=== PATIENT | female | born 1950 | race Caucasian/White ===

== ENCOUNTER 2018-07-13 04:57 | Inpatient (IN) ==
[2018-07-13] MEDS ORDERED: PEPCID ONE (10:13)
[2018-07-13] MEDS ORDERED: COLACE ONE (10:13)
[2018-07-13] MEDS ORDERED: LYRICA ONE (10:14)
[2018-07-13] MEDS ORDERED: REGLAN ONE (10:14)
[2018-07-13] MEDS ORDERED: LR 1,000 ML ONE (10:14)
[2018-07-13] MEDS ORDERED: KEFZOL 2 GM/D5W 2 GM/50 ML IVPB ONE (10:14)
[2018-07-13] MEDS ORDERED: DECADRON ONE (10:31)
[2018-07-13] MEDS ORDERED: FENTANYL ONE (10:31)
[2018-07-13] MEDS ORDERED: DIPRIVAN 1% ONE ×2 (10:31→13:48)
[2018-07-13] MEDS ORDERED: XYLOCAINE-MPF 2% ONE (10:31)
[2018-07-13] MEDS ORDERED: ZOFRAN ONE (10:31)
[2018-07-13] MEDS ORDERED: OFIRMEV 1000 MG/ISOTONIC SOLN 1,000 MG/100 ML BOTTLE ONE (10:31)
[2018-07-13] MEDS ORDERED: TORADOL ONE (12:53)
[2018-07-13] MEDS ORDERED: DURAMORPH ONE (12:53)
[2018-07-13] MEDS ORDERED: SENSORCAINE-MPF 0.5%/EPI 1:200,000 ONE (12:54)
[2018-07-13] MEDS ORDERED: NEOSPORIN G.U. IRRIGANT ONE (12:54)
[2018-07-13] MEDS ORDERED: VANCOMYCIN ONE (12:54)
[2018-07-13] MEDS ORDERED: CYKLOKAPRON 1,000 MG/NS 2,000 MG/200 ML IVPB ONE (12:54)
[2018-07-13] MEDS ORDERED: SODIUM CHLORIDE 0.9% ONE (12:54)
[2018-07-13] MEDS ORDERED: EXPAREL 1.3% ONE (13:13)
[2018-07-13 14:27] LABS: URINE SOURCE CATH
[2018-07-13 14:39] LABS: BILIRUBIN URINE NEGATIVE (NEGATIVE); BLOOD URINE NEGATIVE (NEGATIVE); COLOR STRAW; GLUCOSE URINE NEGATIVE (NEGATIVE); KETONE URINE NEGATIVE (NEGATIVE); TURBIDITY URINE CLEAR (CLEAR)
[2018-07-13 14:40] LABS: LEUKOCYTES URINE NEGATIVE (NEGATIVE); NITRITE URINE NEGATIVE (NEGATIVE); PROTEIN URINE NEGATIVE (NEGATIVE); UROBILINOGEN URINE NORMAL (NORMAL)
[2018-07-13 14:41] LABS: UR EPITHELIAL CELLS <10 /HPF (<10); URINE BACTERIA NEGATIVE /HPF; URINE RBC <10 /HPF (<10); URINE WBC <10 /HPF (<10)
[2018-07-13] MEDS ORDERED: NS 1,000 ML ONE (15:34)
[2018-07-13] MEDS ORDERED: ZOFRAN ODT PO PRN (15:49)
[2018-07-13] MEDS ORDERED: MORPHINE IV PRN ×2 (16:00)
[2018-07-13] MEDS ORDERED: ZOFRAN IV PRN (16:00)
[2018-07-13] MEDS ORDERED: OXY IR ONE (16:11)
--- NOTE | 2018-07-13 16:13 | Diag Imaging Result Doc PS360 ---
EXAM: KNEE 1-2 VIEWS-RIGHT 07/13/2018 HISTORY: post op total knee TECHNIQUE: Two views COMMENT: There is no evidence of fracture or erosion. There is a total knee arthroplasty. IMPRESSION: Postsurgical changes. Electronically signed by Abdoulaye Vaughan 07/13/2018 4:11 PM
[2018-07-13] MEDS ORDERED: FLEXERIL PO PRN (18:41)
[2018-07-13] MEDS ORDERED: VITAMIN D PO SCH (18:45)
--- NOTE | 2018-07-13 18:55 | PROGRESS NOTE ---
DATE: 07/13/2018 SUBJECTIVE DATA: Ms. Christianson is postop day 0 of right total knee replacement. She reports her pain is a 0/10 at this time. She reports her knee already feels better. OBJECTIVE DATA: There is good sensation right lower extremity. There is good pedal pulses. There is negative Homans sign. There is good capillary refill on toes. The bandages are clean and dry. There is about 20 mL of drainage in her drain. Vital signs are stable. ASSESSMENT: Right total knee arthroplasty. PLAN: We will plan to monitor Ms. Christianson in the hospital overnight. She is thinking about going to rehab maybe this Thursday. She is unsure if she wants go at this time. We will check back on her in the morning see how she is doing. Dictated by KRYSTAL Randolph for Luis Manuel Salas MD cc: KRYSTAL Randolph MD
[2018-07-13] MEDS: MORPHINE IV PRN ×2 (19:01→23:15)
[2018-07-13] MEDS: TYLENOL PO SCH (19:05)
[2018-07-13] MEDS: ULTRAM PO SCH ×2 (19:05→23:15)
[2018-07-13] MEDS: LYRICA PO SCH (22:13)
[2018-07-13] MEDS: PERIDEX MT SCH (22:13)
[2018-07-13] MEDS: COLACE PO SCH (22:13)
[2018-07-13] MEDS: XANAX PO SCH (22:13)
[2018-07-13] MEDS: NEURONTIN PO SCH (22:13)
[2018-07-13] MEDS: KEFZOL 2 GM/D5W 2 GM/50 ML IVPB IV SCH (22:14)
--- NOTE | 2018-07-13 22:51 | OPERATIVE NOTE ---
PROCEDURE DATE: 07/13/2018 PREOPERATIVE DIAGNOSIS: Degenerative joint disease, right knee. POSTOP DIAGNOSIS: Degenerative joint disease, right knee. PROCEDURE: Right total knee replacement. SURGEON: Mercedez Salas MD. MARKETING SUMMER INTERN: KRYSTAL Randolph. Mr. Dee was necessary for proper retraction and manipulation during the case. ANESTHESIA: Spinal. COMPLICATION: None. PROCEDURE IN DETAIL: This 67-year-old female presents for right total knee replacement. Risks, benefits, and no guarantees were discussed and the patient is willing to proceed. She was taken operating room and satisfactory anesthesia obtained. The right leg was prepped and draped in usual sterile fashion. A time-out was taken to confirm operative site, procedure, and patient. The leg was wrapped with an Esmarch and tourniquet inflated to 350 mmHg. A midline incision was made over the front of the knee followed by a quad tendon sparing arthrotomy. The patella was everted and resurfaced with freehand technique and sized to a 32 medialized dome patella. With the patella subluxed laterally the knee was flexed, an intramedullary hole made in the distal femur. The distal femoral cutting block was secured with 5 degrees of valgus and the distal femoral resection made. The femur was sized to a size 4 DePuy Attune implant. The 4-in-1 block was secured followed by the anterior, posterior and chamfer cuts. A notch was created for the posterior stabilized design using provided notch guide. Any remaining osteophytes were debrided about the femur. The knee was flexed and a PCL retractor placed behind the tibia to protect the neurovascular bundle. The tibia cutting block was secured and the tibial resection made. Flexion- extension gaps were roughly equal with a 5 mm spacer. The tibia was sized to a size 4 tibial tray. Trial reduction was performed with a 5 mm trial poly with good range of motion and stability. The lug holes were placed for the patella and femoral implant and the trial components removed. The bony surfaces were thoroughly irrigated with pulsatile lavage. Cement with a gram of vancomycin was then utilized to cement a DePuy size 4 rotating platform tibial tray, a size 4 right posterior stabilized femoral component and a 32 medialized dome patella. Excess cement was removed with a Gideon elevator. The joint capsule was injected with Exparel and a Hemovac drain placed while the cement hardened. After hardening of the cement, a size 4 posterior stabilized 5 mm thick polyethylene bearing was secured in the knee and the knee reduced. Final range of motion was 0 to 120 degrees with midline patellar tracking. The arthrotomy was copiously irrigated and closed over the drain with #1 Vicryl in the arthrotomy, 2-0 Vicryl in the subcutaneous and skin meri on the skin edges. Sterile dressings completed the closure and the patient was recovered from anesthesia and transferred to the recovery room in stable condition. No intraoperative complications were noted. Instrument count and sponge count was correct at the time of closure. cc: Luis Manuel Salas MD
[2018-07-14] MEDS: TYLENOL PO SCH ×4 (01:00→18:45)
[2018-07-14] MEDS: MORPHINE IV PRN ×2 (03:26→07:45)
[2018-07-14] MEDS: NS 1,000 ML IV SCH ×3 (03:26→18:19)
[2018-07-14] MEDS: ULTRAM PO SCH ×3 (05:34→18:45)
[2018-07-14] MEDS: KEFZOL 2 GM/D5W 2 GM/50 ML IVPB IV SCH (05:35)
[2018-07-14 07:21] LABS: HEMATOCRIT 33.9 % (37.0-47.0); HEMOGLOBIN 10.4 g/dL (12.0-16.0)
--- NOTE | 2018-07-14 07:51 | PROGRESS NOTE ---
DATE: 07/14/2018 SUBJECTIVE: Ms. Christianson is seen status post total knee replacement. OBJECTIVE: At the present time, she is afebrile with stable vital signs. Hematocrit is 33.9 We will plan on mobilizing her today and discontinuing lines. She has some medical and also neurological conditions which would be best managed with inpatient rehab initially until she is fully mobile. We will plan on having social media assistant see her for transferred to inpatient rehab later this week. She can be mobilized as tolerated currently. cc: Luis Manuel Salas MD
[2018-07-14 07:52] LABS: AGAP 12; BUN 7 mg/dL (8-22); CALCIUM 8.6 mg/dL (8.8-10.2); CHLORIDE 103 mmol/L (98-107); COSMO 279; CREATININE 0.5 mg/dL (0.5-0.9); ESTIMATED GFR > 60; GLUCOSE 134 mg/dL (70-104); POTASSIUM 3.9 mmol/L (3.5-5.1); SODIUM 140 mmol/L (136-145); TCO2 25 mmol/L (25-35)
[2018-07-14] MEDS: LYRICA PO SCH ×2 (10:27→19:55)
[2018-07-14] MEDS: PRAVACHOL PO SCH (10:28)
[2018-07-14] MEDS: ASPIRIN PO SCH (10:28)
[2018-07-14] MEDS: RISPERDAL PO SCH (10:28)
[2018-07-14] MEDS: KLOR-CON PO SCH (10:28)
[2018-07-14] MEDS: MAG-OX PO SCH (10:29)
[2018-07-14] MEDS: NEURONTIN PO SCH ×2 (10:29→19:55)
[2018-07-14] MEDS: MOBIC PO SCH (10:29)
[2018-07-14] MEDS: LASIX PO SCH (10:29)
[2018-07-14] MEDS: ZYRTEC PO SCH (10:30)
[2018-07-14] MEDS: PEPCID PO SCH (10:30)
[2018-07-14] MEDS: XANAX PO SCH ×2 (10:30→19:55)
[2018-07-14] MEDS: EFFEXOR XR PO SCH (10:30)
[2018-07-14] MEDS: PERIDEX MT SCH ×2 (10:31→19:55)
[2018-07-14] MEDS: COLACE PO SCH ×2 (10:31→19:55)
[2018-07-14] MEDS: OXY IR PO PRN ×2 (15:36→19:54)
[2018-07-15] MEDS: ULTRAM PO SCH ×4 (00:02→18:45)
[2018-07-15] MEDS: OXY IR PO PRN ×3 (00:03→09:38)
[2018-07-15] MEDS: TYLENOL PO SCH ×4 (00:03→18:45)
[2018-07-15] MEDS: COLACE PO SCH ×2 (03:49→09:38)
[2018-07-15] MEDS: NEURONTIN PO SCH ×2 (03:52→09:41)
[2018-07-15] MEDS: PERIDEX MT SCH ×2 (03:52→09:42)
[2018-07-15] MEDS: LYRICA PO SCH ×2 (03:53→09:38)
[2018-07-15 06:49] LABS: HEMOGLOBIN 9.7 g/dL (12.0-16.0)
[2018-07-15] MEDS: MAG-OX PO SCH (09:38)
[2018-07-15] MEDS: PRAVACHOL PO SCH (09:38)
[2018-07-15] MEDS: ASPIRIN PO SCH (09:38)
[2018-07-15] MEDS: LASIX PO SCH (09:38)
[2018-07-15] MEDS: KLOR-CON PO SCH (09:40)
[2018-07-15] MEDS: MOBIC PO SCH (09:41)
[2018-07-15] MEDS: XANAX PO SCH (09:41)
[2018-07-15] MEDS: ZYRTEC PO SCH (09:41)
[2018-07-15] MEDS: PEPCID PO SCH (09:41)
[2018-07-15] MEDS: EFFEXOR XR PO SCH (09:41)
[2018-07-15] MEDS: RISPERDAL PO SCH (09:41)
--- NOTE | 2018-07-15 11:12 | PROGRESS NOTE ---
DATE: 07/15/2018 SUBJECTIVE DATA: Ms. Christianson is on postop day 1 of right total knee replacement. She reports her pain is under control at this time. She states she was up and walking this morning and got kind of wobbly and almost fell. She reports she can move her leg well at this time. OBJECTIVE DATA: There is good sensation of the right lower extremity. There is good pedal pulses. There is mild bruising noted to the anterior portion of the right foot. There is good capillary refill in toes. Dressings were being changed at the time of her visit, and shows some serosanguineous drainage. Her vital signs are stable. There is a negative Homans sign. ASSESSMENT: Right total knee arthroplasty. PLAN: We plan on sending Ms. Christianson to rehab tomorrow, if bed is available. We will check back on her in the morning and get that set up. Dictated by KRYSTAL Randolph for Luis Manuel Salas MD cc: KRYSTAL Randolph MD
[2018-07-15] MEDS: NS 1,000 ML IV SCH (12:47)
[2018-07-16] MEDS: ULTRAM PO SCH ×4 (00:30→12:11)
[2018-07-16] MEDS: COLACE PO SCH ×2 (00:30→12:10)
[2018-07-16] MEDS: NEURONTIN PO SCH ×2 (00:30→12:10)
[2018-07-16] MEDS: OXY IR PO PRN ×3 (00:31→12:03)
[2018-07-16] MEDS: PERIDEX MT SCH ×2 (00:31→12:12)
[2018-07-16] MEDS: TYLENOL PO SCH ×3 (00:32→05:19)
[2018-07-16] MEDS: LYRICA PO SCH ×2 (00:32→12:12)
[2018-07-16] MEDS: XANAX PO SCH ×2 (00:32→12:10)
[2018-07-16 07:26] LABS: HEMATOCRIT 32.3 % (37.0-47.0); HEMOGLOBIN 9.5 g/dL (12.0-16.0)
--- NOTE | 2018-07-16 08:36 | DISCHARGE SUMMARY ---
ADMISSION DATE: 07/13/2018 DISCHARGE DATE: 07/16/2018 ADMITTING DIAGNOSIS: Degenerative joint disease, right knee. DISCHARGE DIAGNOSIS: Degenerative joint disease, right knee. PRINCIPAL PROCEDURE: Right total knee arthroplasty. PAST MEDICAL HISTORY: 1. Depression. 2. Rheumatoid arthritis. 3. Hyperlipidemia. 4. Anxiety. ALLERGIES: The patient is allergic to acyclovir, sulfa, trimethoprim. PHYSICAL EXAMINATION: The patient is alert and oriented. She is able to ambulate with her walker without much difficulty. There is good sensation to her right lower extremity. There is a negative Homans' sign. There are no signs of DVT or blood clot. Bandages clean and dry. There is slightly decreased range of motion to her knee due to stiffness. The patient can straighten her leg without difficulty. She is able to flex her quadriceps muscles without much difficulty. LABORATORY DATA: Current hemoglobin and hematocrit is 9.5 and 32.3. HOSPITAL COURSE: The patient was taken to the operating room on 07/13/2018. She obtained a right total knee arthroplasty. She tolerated the procedure well. She was taken to the recovery room. She did great in recovery. She was brought to the surgical floor. Mechanical DVT prophylaxis was initiated. Routine postop antibiotics were started. Her Hemovac drain was discontinued on postop day 2 with about 75 mL of bloody discharge. Physical therapy was started, and the patient walked about 50 feet without difficulty. The patient was able to spontaneously void. She transitioned to oral pain medications. The incision remained clean and dry during her hospital course. She felt like she was ready to be discharged home on 07/16/2018 to rehab. DISPOSITION: We will discharge her to [facility] at this time. FOLLOWUP: She will follow up with Dr. Salas in about 10 to 14 days. DISCHARGE MEDICATIONS: Prescriptions were written for Belva and aspirin. DISCHARGE INSTRUCTIONS: Discharge instructions to be given at time of discharge. She will initiate physical therapy at rehab. [place] need to come out in 10 to 14 days. We will begin discharge at this time. Dictated by KRYSTAL Randolph for Luis Manuel Salas MD cc: KRYSTAL Randolph MD
--- NOTE | 2018-07-16 09:19 | Diag Imaging Result Doc PS360 ---
EXAM: CHEST-1 VIEW INDICATION: rehab TECHNIQUE: One view COMPARISON: 07/06/2018 FINDINGS: The lungs are grossly clear. There is no discrete pleural fluid collection or pneumothorax. The cardiomediastinal silhouette and central vasculature are grossly unremarkable. IMPRESSION: No evidence of acute pathology by plain radiograph. Electronically signed by Luis Manuel Pagan 07/16/2018 9:16 AM
[2018-07-16 11:52] VITALS: BP 122/50
[2018-07-16] MEDS: PEPCID PO SCH (12:08)
[2018-07-16] MEDS: KLOR-CON PO SCH (12:09)
[2018-07-16] MEDS: PRAVACHOL PO SCH (12:09)
[2018-07-16] MEDS: ASPIRIN PO SCH (12:10)
[2018-07-16] MEDS: ZYRTEC PO SCH (12:10)
[2018-07-16] MEDS: MOBIC PO SCH (12:11)
[2018-07-16] MEDS: EFFEXOR XR PO SCH (12:11)
[2018-07-16] MEDS: LASIX PO SCH (12:12)
[2018-07-16] MEDS: RISPERDAL PO SCH (12:17)
== END 2018-07-16 15:07 | DRG 470 ==
LOC: SURHOLD 04:57 → 4N 13:42
PROVIDERS: ADMIT Orthopaedic Surgery Adult Reconstructive Orthopaedic Surgery; ATTEND Orthopaedic Surgery Adult Reconstructive Orthopaedic Surgery
CPT/HCPCS: 71010; 71045; 73560; 80048; 81001; 85014; 85018; 86850; 86900; 86901; 88305; 88311; 94761; 94799; 97110; 97116; 97162; 97530; A9270; C9290; J0131; J0690; J1100; J1885; J2270; J2274; J2275; J2405; J3010; J3370; J7030; J7120; Q9974